=== PATIENT | male | born 1995 | race Caucasian/White ===

== ENCOUNTER 2017-04-21 19:22 | Emergency (ER) | payer BC ==
[2017-04-21 19:28] VITALS: BP 133/72; PULSE 60; TEMP 97.6; BMI 23.6
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
== END 2017-04-21 20:59 | disposition home or self-care (01) ==
LOC: JERFT 19:22
DX: S02.2XXA Fracture of nasal bones, initial encounter for closed fracture (principal); W50.0XXA Accidental hit or strike by another person, initial encounter; Y93.71 Activity, boxing; Y92.9 Unspecified place or not applicable
CPT/HCPCS: 70486-TC; 99281-25

== ENCOUNTER 2018-12-10 07:08 | Emergency (ER) | payer OTHER ==
[2018-12-10 07:41] VITALS: BP 114/58; PULSE 73; TEMP 97.8; BMI 26.6
[2018-12-10] MEDS ORDERED: ACETAMINOPHEN 325 MG TABLET (FP) PO ONE (08:34)
[2018-12-10] MEDS ORDERED: IBUPROFEN 600 MG TABLET (FP) PO ONE ×2 (08:34→08:59)
[2018-12-10] MEDS ORDERED: LIDOCAINE 5% TOPICAL PATCH TP ONE (08:34)
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
[2018-12-10] MEDS ORDERED: ACETAMINOPHEN 325 MG TABLET (FP) ONE (08:58)
[2018-12-10] MEDS ORDERED: LIDOCAINE 5% TOPICAL PATCH ONE (08:59)
== END 2018-12-10 09:25 | disposition home or self-care (01) ==
LOC: JER 07:08
DX: S29.012A Strain of muscle and tendon of back wall of thorax, initial encounter (principal); S80.812A Abrasion, left lower leg, initial encounter; Y35.811A Legal intervention involving manhandling, law enforcement official injured, initial encounter; Y93.89 Activity, other specified; Y92.89 Other specified places as the place of occurrence of the external cause; Y99.0 Civilian activity done for income or pay
CPT/HCPCS: 99281-25

== ENCOUNTER 2019-02-08 03:17 | Emergency (ER) | payer OTHER | END 2019-02-08 04:45 | disposition home or self-care (01) | LOC: JER 03:17 ==

== ENCOUNTER 2019-06-24 01:52 | Emergency (ER) | payer OTHER ==
--- NOTE | 2019-06-24 02:10 | PDOC ---
History of Present Illness - General Stated Complaint: INJURY,NECK-[employer] Time Seen by Provider: 06/24/19 02:09 Past History - Past Medical History Allergies/Adverse Reactions: Allergies Allergy/AdvReac Type Severity Reaction Status Date / Time No Known Allergies Allergy Verified 06/24/19 02:28 Home Medications: Ambulatory Orders Cyclobenzaprine HCl [Flexeril 10 mg] 10 mg PO TID PRN #15 tablet 12/10/18 Ibuprofen 600 mg PO QID PRN #20 tablet 12/10/18 Lidocaine 5% Patch [Lidoderm Patch -] 1 patch TP DAILY PRN #7 patch 12/10/18 COPD: No - Immunization History Immunization Up to Date: Yes - Psycho Social/Smoking Cessation Hx Smoking History: Never smoked Have you smoked in the past 12 months: No Hx Alcohol Use: No Drug/Substance Use Hx: No Discharge - Discharge Information Problems reviewed: Yes Clinical Impression/Diagnosis: Upper back strain Condition: Stable Disposition: HOME - Admission No - Follow up/Referral Referrals: Js Castillo MD [Staff Physician] - - Patient Discharge Instructions Patient Printed Discharge Instructions: DI for Thoracic Back Pain Additional Instructions: You were seen in the ED for complaints of upper back pain Your XR shows a small shift in the spine on T3-T4 This should resolve on its own However if you experience worsening pain, numbness or tingling or any other concerning symptoms you have a referral to Neurology and should try to set up an MRI. Return to the ED if you have worsening symptoms, pain, numbness or tingling. - Post Discharge Activity Work/Back to School Note: Back to Work
[2019-06-24 02:28] VITALS: BP 123/72; PULSE 78; TEMP 98.3; BMI 25.8
[2019-06-24] MEDS ORDERED: IBUPROFEN 400 MG TABLET (FP) PO ONE ×2 (02:30→02:40)
[2019-06-24] MEDS ORDERED: LIDOCAINE 5% TOPICAL PATCH TP ONE (02:30)
[2019-06-24] MEDS ORDERED: METHOCARBAMOL 500 MG TABLET PO ONE (02:30)
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
[2019-06-24] MEDS ORDERED: LIDOCAINE 5% TOPICAL PATCH ONE (02:40)
[2019-06-24] MEDS ORDERED: METHOCARBAMOL 500 MG TABLET ONE (02:40)
[2019-06-24] MEDS ORDERED: LIDOCAINE PATCH REMOVAL MC SCH (22:00)
== END 2019-06-24 03:08 | disposition home or self-care (01) ==
LOC: JER 01:52
DX: S29.012A Strain of muscle and tendon of back wall of thorax, initial encounter (principal); Y35.811A Legal intervention involving manhandling, law enforcement official injured, initial encounter; Y93.89 Activity, other specified; Y92.89 Other specified places as the place of occurrence of the external cause; Y99.0 Civilian activity done for income or pay
CPT/HCPCS: 72070-TC-FY; 99281-25

== ENCOUNTER 2019-11-08 02:56 | Emergency (ER) | payer OTHER ==
[2019-11-08 02:59] VITALS: BP 112/69; PULSE 72; TEMP 98.3; BMI 25.8
--- NOTE | 2019-11-08 03:09 | PDOC ---
*Physical Exam - Vital Signs Last Vital Signs Temp Pulse Resp BP Pulse Ox 98.3 F 72 18 112/69 97 11/08/19 02:57 11/08/19 02:57 11/08/19 02:57 11/08/19 02:57 11/08/19 02:57 Medical Decision Making - Medical Decision Making 11/08/19 03:09 Patient seen by the advanced practice provider under my supervision. Ancillary testing reviewed as necessary. I agree with plan as outlined by the advanced practice provider. Discharge - Discharge Information Problems reviewed: Yes Clinical Impression/Diagnosis: Low back pain Qualifiers: Chronicity: acute Back pain laterality: bilateral Sciatica presence: without sciatica Qualified Code(s): M54.5 - Low back pain Contusion of right knee Qualifiers: Encounter type: initial encounter Qualified Code(s): S80.01XA - Contusion of right knee, initial encounter Disposition: HOME - Follow up/Referral - Patient Discharge Instructions Patient Printed Discharge Instructions: Low Back Pain Additional Instructions: do light stretches Apply ice to the area for the first 24 hours. Then alternate with ice and heat after. Take ibuprofen every 6 hours as needed for pain. Follow-up with an orthopedic doctor if symptoms persist. Return to the emergency room for any worsening symptoms. - Post Discharge Activity Work/Back to School Note: Back to Work
[2019-11-08] MEDS ORDERED: IBUPROFEN 600 MG TABLET (FP) PO ONE ×2 (03:19→03:25)
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
== END 2019-11-08 04:03 | disposition home or self-care (01) ==
LOC: JER 02:56
DX: M54.5 Low back pain (principal); S80.01XA Contusion of right knee, initial encounter; Y35.891A Legal intervention involving other specified means, law enforcement official injured, initial encounter; Y93.89 Activity, other specified; Y92.9 Unspecified place or not applicable; Y99.0 Civilian activity done for income or pay
CPT/HCPCS: 99282-25

== ENCOUNTER 2020-03-23 03:24 | Emergency (ER) | payer OTHER ==
[2020-03-23 03:42] VITALS: BP 114/65; PULSE 79; TEMP 98.1; BMI 25.8
[2020-03-23] MEDS ORDERED: IBUPROFEN 600 MG TABLET (FP) PO ONE ×2 (03:47→03:56)
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
[2020-03-23] MEDS ORDERED: LIDOCAINE 5% TOPICAL PATCH TP ONE (03:50)
[2020-03-23] MEDS ORDERED: LIDOCAINE 5% TOPICAL PATCH ONE (03:56)
[2020-03-23] MEDS ORDERED: DOLUTEGRAVIR SODIUM 50 MG TABLET (NON-FORMULARY) PO ONE (04:06)
--- NOTE | 2020-03-23 04:13 | PDOC ---
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 Also exposed to saliva to the eyes and mouth. No other complaints. Denies f/c, cp/sob, n/v. NKDA. <Js Alfonso - Last Filed: 03/23/20 06:26> - General Chief Complaint: Non EmpBld/Body Flud Exposure Stated Complaint: YPD/MID UPPER BACK INJURY/EXPOSURE Time Seen by Provider: 03/23/20 03:32 Past History <Loree Nunez - Last Filed: 03/23/20 04:55> - Medical History COPD: No - Immunization History Td Vaccination: Yes TDAP Vaccination: Yes Immunization Up to Date: Yes - Psycho-Social/Smoking History Smoking History: Never smoked Have you smoked in the past 12 months: No Information on smoking cessation initiated: No - Substance Abuse Hx (Audit-C & DAST Scrn) How often the patient has a drink containing alcohol: Never Score: In Men: 4 or > Positive; In Women: 3 or > Positive: 0 Screen Result (Pos requires Nsg. Audit-10AR): Negative In the last yr the pt used illegal drug/Rx for NonMed reason: No Score: Yes response is considered Positive: 0 Screen Result (Positive result requires Nsg. DAST-10): Negative <KadenJs - Last Filed: 03/23/20 06:26> - Medical History Allergies/Adverse Reactions: Allergies Allergy/AdvReac Type Severity Reaction Status Date / Time No Known Allergies Allergy Verified 03/23/20 03:41 Home Medications: Ambulatory Orders Dolutegravir Sodium [Tivicay] 50 mg PO DAILY #3 tablet 03/23/20 Emtricitabine/Tenofovir (Tdf) [Truvada 200 mg-300 mg Tablet] 1 each PO DAILY #3 tablet 03/23/20 Review of Systems - Review of Systems Comments:: 03/23/20 06:26 CONSTITUTIONAL: Denies F / C HEENT: Denies headache, changes in vision / hearing RESP: Denies SOB, cough CARD: Denies chest pain, palpitations GI: Denies N / V / D, abdominal pain : Denies dysuria, hematuria, frequency NEURO: Denies numbness, tingling, weakness, loss of bowel/bladder control, incontinence MSK: + back pain SKIN: Denies rashes <Js Alfonso - Last Filed: 03/23/20 06:26> *Physical Exam - Vital Signs Last Vital Signs Temp Pulse Resp BP Pulse Ox 98.1 F 79 20 114/65 100 03/23/20 03:41 03/23/20 03:41 03/23/20 03:41 03/23/20 03:41 03/23/20 03:41 <EnriqueLoree - Last Filed: 03/23/20 04:55> - Vital Signs Last Vital Signs Temp Pulse Resp BP Pulse Ox 98.1 F 79 20 114/65 100 03/23/20 03:41 03/23/20 03:41 03/23/20 03:41 03/23/20 03:41 03/23/20 03:41 - Physical Exam 03/23/20 06:26 GEN: Well appearing, NAD, comfortable. AAOx3. HEENT: NC/AT, EOMI, PERRL. No facial asymmetry. Moist mucous membranes. Normal voice. Supple neck w/ FROM. CV: S1/S2, RRR, no m/r/g LUNG: CTAB, no wheezes, crackles, rales, rhonchi. GI: Soft, ndnt, +BS, no guarding, no rebound. MSK: No obvious deformities of all extremities. BACK: no step offs or midline TTP. no obvious signs of trauma. SKIN: Warm, dry, no rashes appreciated. PSYCH: Normal mood and affect. NEURO: Moving all extremities well. 5/5 UE and LE strength b/l. symmetric sensation. normal gait. <Js Alfonso - Last Filed: 03/23/20 06:26> ED Treatment Course - LABORATORY CBC & Chemistry Diagram: 03/23/20 04:02 03/23/20 04:02 - ADDITIONAL ORDERS Additional order review: Laboratory Results 03/23/20 04:02 Sodium 141 Potassium 4.3 Chloride 107 Carbon Dioxide 27 Anion Gap 8 BUN 21.6 H Creatinine 1.2 Est GFR (CKD-EPI)AfAm 96.82 Est GFR (CKD-EPI)NonAf 83.54 Random Glucose 107 H Calcium 9.4 Total Bilirubin 0.4 AST 16 ALT 23 Alkaline Phosphatase 71 Total Protein 7.7 Albumin 4.4 03/23/20 04:02 RBC 4.76 MCV 92.1 MCHC 33.2 RDW 13.4 MPV 11.1 Neutrophils % 70.5 Lymphocytes % 19.8 Monocytes % 7.5 Eosinophils % 1.1 Basophils % 1.1 - Medications Given in the ED: ED Medications Discontinued Medications Generic Name Dose Route Start Last Admin Trade Name Freq PRN Reason Stop Dose Admin Ibuprofen 600 mg 03/23/20 03:47 03/23/20 04:01 Motrin - PO 03/23/20 03:48 600 mg ONCE ONE Administration Lidocaine 1 patch 03/23/20 03:50 03/23/20 04:01 Lidoderm Patch - TP 03/23/20 03:51 1 patch ONCE ONE Administration Miscellaneous 1 each 03/23/20 04:38 03/23/20 04:46 Hiv Post Exposure Prophylaxis NR 03/23/20 04:39 1 each ONCE ONE Administration <Loree Nunez - Last Filed: 03/23/20 04:55> - LABORATORY CBC & Chemistry Diagram: 03/23/20 04:02 03/23/20 04:02 - Medications Given in the ED: ED Medications Discontinued Medications Generic Name Dose Route Start Last Admin Trade Name Freq PRN Reason Stop Dose Admin Ibuprofen 600 mg 03/23/20 03:47 03/23/20 04:01 Motrin - PO 03/23/20 03:48 600 mg ONCE ONE Administration Lidocaine 1 patch 03/23/20 03:50 03/23/20 04:01 Lidoderm Patch - TP 03/23/20 03:51 1 patch ONCE ONE Administration <Js Alfonso - Last Filed: 03/23/20 06:26> Medical Decision Making - Medical Decision Making 03/23/20 06:26 25M [employer] w/ back pain and exposure to saliva. neuro intact. low risk for viral transmission but patient very concerned. PEP - Truvada and Dolutegravir HIV, Hep panel, CBC, CMP refer to PCP, spine lidocaine patch, ibuprofen dc home <Js Alfonso - Last Filed: 03/23/20 06:26> Discharge - Discharge Information Problems reviewed: Yes - Admission No <Loree Nunez - Last Filed: 03/23/20 04:55> - Discharge Information Problems reviewed: Yes - Admission No <Js Alfonso - Last Filed: 03/23/20 06:26> - Discharge Information Clinical Impression/Diagnosis: Exposure to blood or body fluid, Back pain Upper back strain Qualifiers: Encounter type: initial encounter Qualified Code(s): S29.012A - Strain of muscle and tendon of back wall of thorax, initial encounter Thoracic back pain Qualifiers: Chronicity: unspecified Back pain laterality: midline Qualified Code(s): M54.6 - Pain in thoracic spine Condition: Stable Disposition: HOME - Additional Discharge Information Prescriptions: Dolutegravir Sodium [Tivicay] 50 mg PO DAILY #3 tablet Emtricitabine/Tenofovir (Tdf) [Truvada 200 mg-300 mg Tablet] 1 each PO DAILY #3 tablet - Follow up/Referral Referrals: [facility] [place] [facility] [place] [Provider Group] [facility] [Provider Group] Floyd Wisdom MD, [facility] [Staff Physician] - - Patient Discharge Instructions Patient Printed Discharge Instructions: How to Handle Body Fluid Exposure -- Non-Healthcare Worker (At Home, Caregi Additional Instructions: Discharge Instructions: You were seen in the emergency department for back pain. This is most likely due to a muscle strain. Home Care and Follow Up: - You may use over the counter medications as needed for pain at home. 650- 1000mg acetaminophen (Tylenol) or 600mg ibuprofen (Motrin or Advil) can be used every 6-8 hours. If needed for continued pain, these medications may be alternated every 3-4 hours. For example, if you take ibuprofen at 9am, you may take acetaminophen at noon, ibuprofen at 3pm, etc. - You may buy a numbing patch that contains lidocaine (the patch is 4% lidocaine) that can be placed over the areas of greatest pain. The lidocaine patch may be placed for 12 hours then removed for 12 hours. - Try using an ice pack for 20 minutes every hour or a heating pad for additional pain control. These should NOT be used over the lidocaine patch, but you may place them over the areas of pain while the patch is off. - Do not stop moving around. As much as you can tolerate, continue to do light exercise and stretching exercises. Increase your activity level as much as you can tolerate daily. - If your pain does not improve over the next week, follow up with your primary doctor. - Seek immediate medical care if you have significant worsening of your s ymptoms, any neurological symptoms (one-sided weakness, numbness, incontinence), difficultly walking, or any other medical emergency. - Post Discharge Activity Work/Back to School Note: Back to Work
[2020-03-23 04:19] LABS: BASO % 1.1 % (0-2.0); EOS % 1.1 % (0-4.5); HEMATOCRIT 43.8 % (35.4-49); HEMOGLOBIN 14.6 GM/dL (11.7-16.9); LYMPH % 19.8 % (8-40); MCH 30.6 pg (25.7-33.7); MCHC 33.2 g/dl (32.0-35.9); MEAN CELL VOLUME 92.1 fl (80-96); MEAN PLT VOLUME 11.1 fl (7.5-11.1); MONO % 7.5 % (3.8-10.2); NEUT % 70.5 % (42.8-82.8); PLATELET COUNT 170 K/MM3 (134-434); RBC 4.76 M/mm3 (4.00-5.60); RDW 13.4 % (11.9-15.9); WHITE BLOOD COUNT 7.1 K/mm3 (4.0-10.0)
[2020-03-23] MEDS: TENOFOVIR DISOPROXIL FUMARATE 300 MG TABLET PO ONE ×2 (04:20→05:10)
[2020-03-23 04:36] LABS: ALBUMIN 4.4 g/dl (3.4-5.0); BILIRUBIN,TOTAL 0.4 mg/dL (0.2-1); BLOOD UREA NITROGEN 21.6 mg/dL (7-18); CALCIUM 9.4 mg/dL (8.5-10.1); CREATININE 1.2 mg/dL (0.55-1.3); POTASSIUM 4.3 mmol/L (3.5-5.1); TOT PROT 7.7 g/dl (6.4-8.2)
[2020-03-23] MEDS ORDERED: HIV POST EXPOSURE PROPHYLAXIS KIT NR ONE (04:38)
[2020-03-23] MEDS ORDERED: HIV POST EXPOSURE PROPHYLAXIS KIT PO ONE (04:43)
[2020-03-23] MEDS ORDERED: EMTRICITABINE 200MG/TENOFOVIR 300MG PO ONE (05:10)
[2020-03-23] MEDS ORDERED: EMTRICITABINE 200MG/TENOFOVIR 300MG PO SCH (10:00)
[2020-03-23] MEDS ORDERED: LIDOCAINE PATCH REMOVAL MC SCH (22:00)
== END 2020-03-23 05:13 | disposition home or self-care (01) ==
LOC: JER 03:24
DX: S29.012A Strain of muscle and tendon of back wall of thorax, initial encounter (principal); M54.6 Pain in thoracic spine; Z77.21 Contact with and (suspected) exposure to potentially hazardous body fluids
CPT/HCPCS: 36415; 80053; 85025; 86317; 86704; 86706; 86803; 87340; 87389; 99285-25

== ENCOUNTER 2020-09-15 23:03 | Emergency (ER) | payer OTHER | END 2020-09-15 23:37 | disposition home or self-care (01) | LOC: FER 23:03 | DX: Z77.21 Contact with and (suspected) exposure to potentially hazardous body fluids (principal) | CPT/HCPCS: 99283-25 ==

== ENCOUNTER 2022-05-07 17:20 | Emergency (ER) | payer OTHER ==
[2022-05-07] MEDS ORDERED: IBUPROFEN 400 MG TABLET (FP) PO ONE ×2 (17:41→17:58)
[2022-05-07 17:53] VITALS: BP 106/60; PULSE 78; RESP 18; TEMP 98.6; BMI 25.8
== END 2022-05-07 18:17 | disposition home or self-care (01) ==
LOC: FER 17:20
DX: M54.50 Low back pain, unspecified (principal)
CPT/HCPCS: 99283-25

== ENCOUNTER 2022-09-22 21:40 | Emergency (ER) | payer BC, OTHER ==
[2022-09-22] MEDS ORDERED: FLUORESCEIN NA 1 EA STRIP ONE (21:48)
[2022-09-22] MEDS ORDERED: TETRACAINE 0.5% OPHTH SOLN 2 ML BOTTLE ONE (21:48)
[2022-09-22 21:54] VITALS: BP 115/69; PULSE 62; RESP 16; TEMP 98.8; BMI 23.2
== END 2022-09-22 22:21 | disposition home or self-care (01) ==
LOC: FER 21:40
PROC: 0HQ1XZZ Repair Face Skin, External Approach (ICD-10-PCS; principal; 2022-09-22)
DX: S01.112A Laceration without foreign body of left eyelid and periocular area, initial encounter (principal); W50.0XXA Accidental hit or strike by another person, initial encounter
CPT/HCPCS: 99283-25

== ENCOUNTER 2023-01-13 09:22 | Emergency (ER) | payer OTHER ==
[2023-01-13 09:36] VITALS: BP 122/74; PULSE 57; RESP 16; TEMP 98.6; BMI 23.7
[2023-01-13] MEDS ORDERED: IBUPROFEN 600 MG TABLET (FP) PO ONE (09:41)
[2023-01-13] MEDS ORDERED: BACITRACIN ZINC 15 GM TUBE TOPICAL OINTMENT TP ONE (09:41)
[2023-01-13] MEDS ORDERED: ACETAMINOPHEN 325 MG TABLET (FP) ONE (09:46)
[2023-01-13] MEDS ORDERED: ACETAMINOPHEN 500 MG TABLET (FP) PO ONE (09:50)
[2023-01-13] MEDS ORDERED: ACETAMINOPHEN 325 MG TABLET (FP) PO ONE (09:57)
== END 2023-01-13 10:18 | disposition home or self-care (01) ==
LOC: FER 09:22
DX: M54.50 Low back pain, unspecified (principal); S60.511A Abrasion of right hand, initial encounter; X58.XXXA Exposure to other specified factors, initial encounter; Y99.0 Civilian activity done for income or pay
CPT/HCPCS: 99283-25

== ENCOUNTER 2023-10-09 14:10 | Emergency (ER) | payer BC, OTHER ==
[2023-10-09 14:28] VITALS: BP 117/70; PULSE 83; RESP 15; TEMP 98.6; BMI 22.8
== END 2023-10-09 14:53 | disposition home or self-care (01) ==
LOC: FER 14:10
PROC: 0HQ1XZZ Repair Face Skin, External Approach (ICD-10-PCS; principal; 2023-10-09)
DX: S01.111A Laceration without foreign body of right eyelid and periocular area, initial encounter (principal); W21.03XA Struck by baseball, initial encounter; Y93.64 Activity, baseball
CPT/HCPCS: 99282-25